=== PATIENT | female | born 1945 | race Caucasian/White ===

== ENCOUNTER 2023-07-19 11:15 | Outpatient (CLI) | payer MEDICARE, SELFPAY ==
[2023-07-19 12:16] LABS: Alanine Aminotransferase 18 U/L (0-33); Albumin Level 4.2 g/dL (3.5-5.2); Alkaline Phosphatase 60 U/L (35-105); Anion Gap 13.6 (5-19); Aspartate Amino Transferase 17 U/L (0-32); Blood Urea Nitrogen 13 mg/dL (8-23); Calcium 9.5 mg/dL (8.5-10.5); Carbon Dioxide 27 mmol/L (22-29); Chloride 106 mmol/L (98-107); Chol HDL Ratio 3.02 mg/dL (0.0-4.40); Cholesterol 166 mg/dL (0-200); Glucose 129 mg/dL (65-115); HDL Cholesterol 55 mg/dL (60-100); LDL Cholesterol Calculated 101 mg/dL (50-129); LDL HDL Ratio 1.84 RATIO (0.00-3.22); Osmolality Calculated 296 mOsm/kg (285-295); Potassium 4.6 mmol/L (3.5-5.1); Sodium 142 mmol/L (136-145); Thyroid Stimulating Hormone 0.77 uIU/mL (0.27-4.20); Total Bilirubin 0.3 mg/dL (0.15-1.2); Total Protein 7.2 g/dL (6.6-8.7); Triglycerides 48 mg/dL (0-150); Vitamin B12 557 pg/mL (232-1245)
[2023-07-19 14:03] LABS: Basophils % 0.2 %; Eosinophils % 0.6 %; Hematocrit 41.3 % (36-47); Lymphocytes # 1.3 10^3/uL (0.8-4.8); Lymphocytes % 27.3 %; Mean Corpuscular HGB Conc 32.7 g/dL (30-55); Mean Corpuscular Hemoglobin 30.5 pg (27-33); Mean Corpuscular Volume 93.2 fl (85-98); Mean Platelet Volume 10.9 fL (7.4-10.4); Monocytes # 0.5 10^3/uL (0.2-0.9); Monocytes % 9.4 %; Neutrophils # 2.97 10^3/uL (1.8-7.7); Neutrophils % 62.3 %; Nucleated Red Blood Cells % 0 %; Platelet Count 280 10^3/cmm (157-399); Red Blood Count 4.43 10^6/uL (3.85-5.65); Red Cell Distribution Width 13.3 % (12.1-15.1); White Blood Count 4.77 10^3/uL (3.29-11.43)
[2023-07-19 16:02] LABS: Folate Level > 20.0 ng/mL (4.8-37.3)
[2023-07-19 16:45] LABS: Estmated Average Glucose 140; Hemoglobin A1C 6.5 % (4.0-6.0)
== END 2023-07-19 11:16 | disposition home or self-care (01) ==
PROVIDERS: Visit Provider Family Medicine
DX: Z01.89 Encounter for other specified special examinations (principal)
CPT/HCPCS: 80053; 80061; 82607; 82746; 83036; 84443; 85025